=== PATIENT | female | born 1995 | race Caucasian/White ===

== ENCOUNTER 2023-02-24 11:07 | Emergency (ER) | payer OTHER, SELFPAY ==
[2023-02-24 11:12] VITALS: BP 141/86; PULSE 87; RESP 16; TEMP 36.5; O2SAT 99; BMI 23.5
[2023-02-24 11:37] LABS: UR Morphine/Opiate cutoff 300 Negative (Negative); Ur Creatinine Normal (Normal); Ur Specific Gravity Normal (Normal); Urine Amphetamines Negative (Negative); Urine Barbiturates Negative (Negative); Urine Benzodiazepines Negative (Negative); Urine Cocaine Negative (Negative); Urine MDMA Negative (Negative); Urine Methadone Negative (Negative); Urine Methamphetamines Negative (Negative); Urine Oxycodone Negative (Negative); Urine Phencyclidine Negative (Negative); Urine Tetrahydrocannabinol Negative (Negative); Urine Tricyclic Antidepressant Negative (Negative); Urine pH Normal (Normal)
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
== END 2023-02-24 12:08 | disposition home or self-care (01) ==
PROVIDERS: Emergency Provider Emergency Medicine
DX: R42 Dizziness and giddiness (principal)
CPT/HCPCS: 80305; 93005; 93010; 99281; 99282

== ENCOUNTER 2023-10-13 12:56 | Emergency (ER) | payer OTHER, SELFPAY ==
[2023-10-13 13:17] VITALS: BP 146/75; PULSE 97; RESP 18; TEMP 37; O2SAT 99; BMI 21.9
[2023-10-13] MEDS: KETOROLAC 30 MG/ML VIAL IM (14:30)
[2023-10-13 14:31] VITALS: BP 122/72; PULSE 67; O2SAT 100
--- NOTE | 2023-10-13 17:35 | ED.BACK ---
HPI - Back Pain/Injury <Rina Randolph PA-C - Last Filed: 10/13/23 17:45> General Chief Complaint: Back Pain/Injury Stated Complaint: shooting back and leg pain/ neck stiffness Time Seen by Provider: 10/13/23 14:05 Source: patient History of Present Illness HPI Narrative: Patient is a 27-year-old female who presents accompanied by her aunt due to low back pain with right-sided sciatica and neck pain. The low back pain has been flaring since yesterday. Patient reports a long history of low back pain, thinks it was triggered initially by a left bimalleolar lower extremity fracture that caused her to have an uneven gait. She recently had an MRI (she shows me the report on her phone) through [facility] which showed degenerative disc disease in the lumbar spine. She is currently awaiting a referral for additional treatment. She has already completed two rounds of physical therapy. 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 She also complains of neck pain today, and reports that her neck pops when she rotates her head. The pain is worse the right side of her neck but she endorses intermittent numbness in her left fingers 1 through 3. She denies any acute injury or trauma to neck or her low back. She takes gabapentin 100-400 mg 1 to 2 times a day as well as Aleve and Tylenol. She currently takes Vyvanse, not on any other controlled substances. Patient denies use of IV drugs. She also complains of intermittent palpitations and lightheadedness. She is currently awaiting an appointment with her primary care to address this. Related Data Previous Rx's Medication Instructions Recorded cyclobenzaprine 5 mg tablet 5 mg PO TID PRN muscle spasm #10 10/13/23 tabs Allergies Allergy/AdvReac Type Severity Reaction Status Date / Time ibuprofen Allergy Rash Verified 02/24/23 11:17 Review of Systems <Rina Randolph PA-C - Last Filed: 10/13/23 17:45> Review of Systems ROS Unobtainable: All systems reviewed & are unremarkable except as noted in HPI and below Patient History <Rina Randolph PA-C - Last Filed: 10/13/23 17:45> Social History Smoking Status: Current every day smoker Smoking Status: Current every day smoker tobacco type: vaping alcohol intake frequency: holidays/special occasions only Substance Use Type: marijuana Exam <Rina Randolph PA-C - Last Filed: 10/13/23 17:45> Narrative Exam Narrative: GENERAL: 27 year old patient appears stated age. Well-developed patient, in no acute distress. NEURO: AOx3.5/5 strength in lower extremities. HEAD: Atraumatic. Normocephalic. EYES: Pupils equal round and reactive. Extraocular motions intact. No scleral icterus. No injection or drainage. ENT: Nose without bleeding or purulent drainage. CARDIOVASCULAR: Regular rate and rhythm without murmurs, gallops, or rubs. RESPIRATORY: Clear to auscultation. Breath sounds equal bilaterally. No wheezes, rales, or rhonchi. EXTREMITIES: No edema or joint tenderness. SPINE: Tenderness to light palpation throughout the spine, from C-spine through S-spine. No step-offs or focal point tenderness. Pain over the right SI joint area. Pain the right sternocleidomastoid. SKIN: No rash or erythema of visible areas Initial Vital Signs Initial Vital Signs: Vital Signs Temperature 98.6 F 10/13/23 13:17 Pulse Rate 97 H 10/13/23 13:17 Respiratory Rate 18 10/13/23 13:17 Blood Pressure 146/75 H 10/13/23 13:17 Pulse Oximetry 99 10/13/23 13:17 Oxygen Delivery Method Room Air 10/13/23 13:17 <Sobeida Serra DO - Last Filed: 10/16/23 08:58> Initial Vital Signs Initial Vital Signs: Vital Signs Temperature 98.6 F 10/13/23 13:17 Pulse Rate 97 H 10/13/23 13:17 Respiratory Rate 18 10/13/23 13:17 Blood Pressure 146/75 H 10/13/23 13:17 Pulse Oximetry 99 10/13/23 13:17 Oxygen Delivery Method Room Air 10/13/23 13:17 Course <Rina Randolph PA-C - Last Filed: 10/13/23 17:45> Orders Ordered: Discontinued Medications Ketorolac Tromethamine (Ketorolac 30 Mg/Ml Vial) 30 mg IM NOW ONE Stop: 10/13/23 14:26 Last Admin: 10/13/23 14:30 Dose: 30 mg Documented By: RL Vital Signs Vital signs: Vital Signs - 8 hr 10/13/23 13:17 10/13/23 14:31 Temperature 98.6 F Pulse Rate 97 H 67 Respiratory Rate 18 Blood Pressure 146/75 H 122/72 Pulse Oximetry 99 100 Oxygen Delivery Method Room Air Room Air <Sobeida Serra DO - Last Filed: 10/16/23 08:58> Orders Ordered: Discontinued Medications Ketorolac Tromethamine (Ketorolac 30 Mg/Ml Vial) 30 mg IM NOW ONE Stop: 10/13/23 14:26 Last Admin: 10/13/23 14:30 Dose: 30 mg Documented By: RL Vital Signs Vital signs: Vital Signs - 8 hr 10/13/23 13:17 10/13/23 14:31 Temperature 98.6 F Pulse Rate 97 H 67 Respiratory Rate 18 Blood Pressure 146/75 H 122/72 Pulse Oximetry 99 100 Oxygen Delivery Method Room Air Room Air MDM - Back Pain/Injury <Rina Randolph PA-C - Last Filed: 10/13/23 17:45> MDM Narrative Medical decision making narrative: Multiple etiologies for patient's symptoms considered including, but not limited to: Lumbar strain with sciatica, cauda equina, epidural abscess Patient is a 27-year-old who presents with acute on chronic low back pain, currently seeking pain relief while she waits for a referral to a pain specialist. She is accompanied by her aunt who is very vocal in addressing patient's concerns and reporting her symptoms. Patient is prescribed gabapentin but it seems her dose is limited by sleepiness. Patient recently completed MRI of her lumbar spine. There is no new injury or trauma to suggest need for repeat imaging of her neck or her lumbar spine today. There are no red flags for cauda equina, epidural abscess or hematoma. Pain treated with Toradol IM in the emergency room and prescribed muscle relaxers for symptomatic relief. Encouraged continued NSAIDs, stretching, gentle activity and ice or heat. Advised return precautions. Advised to follow up with primary care regarding concern for palpitations and lightheadedness; this has been going on for 4 months and patient does not want to stay in the emergency room today to do labs or get an EKG. She states she knows how to get follow up for this Patient's symptoms improved over duration of stay with above-stated therapies. Findings and discharge diagnosis discussed with patient/family followed by verbalization of understanding Return precautions discussed with patient/family whom verbalize understanding of diagnosis and plan Discharge Plan Departure Patient Disposition: Home Clinical Impression: Acute back pain with sciatica Qualifiers: Laterality: right Qualified Code(s): M54.41 - Lumbago with sciatica, right side Instructions: DI for Back Pain With Sciatica Activity Restrictions/Additional Instructions: *You have been diagnosed with low back pain with sciatica. You were given a dose of Toradol in the emergency room to help with your pain. Do not take anymore NSAIDs such as Aleve for at least 12 hours. There is not evidence to support Tylenol for the use of pain management and low back pain. I would continue taking the Aleve. I will also prescribe a muscle relaxer for you to use when the pain is severe. Be aware this medication can make you sleepy, cause dry mouth and constipation. Do not combine with other sedative medications or take with alcohol. Do not drive or operate heavy machinery while taking this medication. Please follow up with your primary care regarding ongoing management of your chronic low back pain. Please return to the emergency department if you experience loss of control of bowel or bladder or numbness in your groin or are unable to walk due to weakness. *What to do: *Please continue to take your regular medications as directed. [x] New medication prescriptions sent to your pharmacy: [facility] [ ] New medication written as a paper prescription [ ] No new medications given *Please follow up with your primary care provider in 2-3 days, call for an appointment. Let them know you were seen in the Emergency Department and that we ask that you be seen in follow up. We will electronically transmit a record of today's note if your PCP is in our system *If you do not have a primary care provider please contact the [facility] Resource line at [phone]. They will ask some questions about your medical history and help get you set up with a doctor in the community. *Return to Emergency Department if you should have any new, worsening or concerning symptoms, such as [fever greater than 101 F, shaking chills, worsening pain, persistent vomiting or other concerning symptoms]. Prescriptions: New cyclobenzaprine 5 mg tablet 5 mg PO TID PRN (Reason: muscle spasm) Qty: 10 0RF Referrals: Miscellaneous,Doctor, MD [Primary Care Provider] - Stand Alone Forms: Patient Portal/API ED Sign-out <Sobeida Serra DO - Last Filed: 10/16/23 08:58> Cosign ED Attending Coskatieature Attestation: I was available for consultation.
== END 2023-10-13 14:35 | disposition home or self-care (01) ==
PROVIDERS: Emergency Provider Physician Assistant
DX: M54.41 Lumbago with sciatica, right side (principal)
CPT/HCPCS: 96372; 99283; J1885

== ENCOUNTER 2024-09-11 08:18 | Emergency (ER) | payer OTHER, SELFPAY ==
[2024-09-11] VITALS (7 sets, daily range): BP systolic 107–123; BP diastolic 65–73; PULSE 55–74; RESP 18; TEMP 37.1; O2SAT 97–99; BMI 21.1
--- NOTE | 2024-09-11 08:43 | ED.GENADULT ---
HPI - General Adult General Chief complaint: Back Pain/Injury Stated complaint: Tear In right hip . Time Seen by Provider: 09/11/24 08:35 History of Present Illness HPI narrative: 28-year-old woman with a previously diagnosed right labral tear presents with significant increase in right hip pain. She has been seen by her primary care physician. Uses Alleve twice a day and oxycodone has recently been added. She uses half to 1 5 mg oxycodone daily. 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 Has not appointment with Orthopedic surgery in September comes in today because the pain is so severe she is having difficulty walking. She did take an Aleve and 5 mg of oxycodone prior to arrival. Not describing fevers or chills. Related Data Previous Rx's Medication Instructions Recorded cyclobenzaprine 5 mg tablet 5 mg PO TID PRN muscle spasm #10 10/13/23 tabs dexamethasone 4 mg tablet 10 mg (2.5 x 4 mg) PO DAILY #5 tabs 09/11/24 Allergies Allergy/AdvReac Type Severity Reaction Status Date / Time ibuprofen Allergy Rash Verified 02/24/23 11:17 Review of Systems Review of Systems Narrative: Pertinent positive and negative findings as per HPI Patient History Social History Smoking Status: Current every day smoker Smoking Status: Current every day smoker tobacco type: vaping alcohol intake frequency: holidays/special occasions only Exam Initial Vital Signs Initial Vital Signs: Vital Signs Pulse Rate 73 09/11/24 08:32 Pulse Oximetry 97 09/11/24 08:32 General: Alert appropriate , obvious pain lying with her left hip slightly elevated, knee is flexed and hip is internally rotated to find position of comfort Respiratory: Able to speak in full sentences, no obvious respiratory distress Skin: No obvious rashes, warm and dry Abdomen: Mild right lower quadrant and right flank pain Musculoskeletal: Significant tenderness along the entire right hip area including inguinal area, ischial tuberosity, external bursa area, SI joint. Any movement of the hip is painful. She is neurovascularly intact distal to the hip. There are no skin skin changes, warmth or redness associated with the Neurologic: Grossly intact no obvious asymmetries or abnormalities Psych: appropriate insight and affect, cooperative Course Orders Ordered: ED Orders 09/11/24 08:55 XR hip w pel if done RT 2V Stat 09/11/24 09:50 CRP [C-Reactive Protein Quant] Stat Complete Blood Count AUTO DIFF Stat Comprehensive Metabolic Panel Stat Erythrocyte Sedimentation Rate Stat Hydromorphone HCl (Hydromorphone 0.5 Mg Inj) 0.5 mg IV Q15MIN PRN PRN Reason: Pain, Discontinued Medications Naproxen (Naproxen 250 Mg Tablet) 500 mg PO NOW ONE Stop: 09/11/24 09:01 Last Admin: 09/11/24 09:26 Dose: 500 mg Documented By: LIBAN Vital Signs Vital signs: Vital Signs - 8 hr 09/11/24 08:32 09/11/24 08:38 09/11/24 09:00 Temperature 98.8 F Pulse Rate 73 70 Respiratory Rate 18 Blood Pressure 122/73 123/69 Pulse Oximetry 97 97 Oxygen Delivery Method Room Air 09/11/24 09:00 09/11/24 09:30 09/11/24 09:49 Temperature Pulse Rate 74 72 Respiratory Rate Blood Pressure 114/69 Pulse Oximetry 98 97 Oxygen Delivery Method 09/11/24 09:49 Temperature Pulse Rate 66 Respiratory Rate Blood Pressure Pulse Oximetry 98 Oxygen Delivery Method Medical Decision Making Lab Data 09/11/24 09:50 09/11/24 09:50 Labs: Lab Results 09/11/24 Range/Units 09:50 WBC 7.4 (4.5-11.0) X10^3/uL RBC 4.15 (4.0-5.2) X10^6/uL Hgb 13.4 (12.0-16.0) g/dL Hct 40.0 (36-46) % MCV 96.4 (80-100) fL MCH 32.2 (26-34) PG MCHC 33.4 (30-36) % RDW 13.6 (11.6-14.8) % Plt Count 192 (150-400) X10^3/uL Neut % (Auto) 69.7 (50-75) % Lymph % (Auto) 23.6 L (25-40) % Major % (Auto) 5.0 (3-14) % Eos % (Auto) 1.1 L (2-4) % Baso % (Auto) 0.6 (0-2) % Neut # (Auto) 5100 (5708-8160) /uL Lymph # (Auto) 1700 (7722-7082) /uL Major # (Auto) 400 (0-900) /uL Eos # (Auto) 100 (0-450) /uL Baso # (Auto) 0 (0-100) /uL Sodium 139 (137-145) mmol/L Potassium 4.3 (3.4-5.1) mmol/L Chloride 109 H (98-107) mmol/L Carbon Dioxide 21 L (22-32) mmol/L BUN 10 (7-17) mg/dL Creatinine 0.64 (0.52-1.04) mg/dL Estimated GFR > 60 (>60) mL/min BUN/Creatinine Ratio 15.6 (6-22) Glucose 96 (70-100) mg/dL Calcium 8.7 (8.4-10.2) mg/dL Total Bilirubin 0.4 (0.2-1.3) mg/dL AST 29 (14-36) IU/L ALT 16 (<35) IU/L Alkaline Phosphatase 45 (38-126) U/L C-Reactive Protein < 0.5 (<1.0) mg/dL Total Protein 7.1 (6.3-8.2) g/dL Albumin 4.4 (3.5-5.0) g/dL Globulin 2.7 (1.7-4.1) g/dL Albumin/Globulin Ratio 1.6 (1.0-2.8) Point of Care Testing Test Results Negative Urine Dip Bedside Urine Glucose Negative Bedside Urine Bilirubin - Negative Bedside Urine Ketone - Negative Urine Specific [employer] 1.010 Bedside Urine Occult Blood - Negative Bedside Urine pH 8.5 Bedside Urine Protein - Negative Bedside Urine Urobilinogen - Negative Bedside Urine Nitrite - Negative Bedside Urine Leukocytes - Negative Esterase Point of care testing: Point of Care Testing Test Results Negative Urine Dip Bedside Urine Glucose Negative Bedside Urine Bilirubin - Negative Bedside Urine Ketone - Negative Urine Specific [employer] 1.010 Bedside Urine Occult Blood - Negative Bedside Urine pH 8.5 Bedside Urine Protein - Negative Bedside Urine Urobilinogen - Negative Bedside Urine Nitrite - Negative Bedside Urine Leukocytes - Negative Esterase MDM Narrative Medical decision making narrative: CC: Severe right hip pain Complicating co-morbidities: Known right labral tear orthopedic consultation scheduled in September She did have her IUD removed approximately 10 days ago. Had a normal menstrual cycle after that. No loud vaginal discharge or discomfort. Data collected from: patient Social determinants of health that may influence the patients condition: Medical records reviewed: Notes from [facility] and primary are reviewed Patient was seen by pain management medication Dr. Null on August 05. Hip injection under fluoroscopic guidance for diagnostic and therapeutic purposes done back in March of 2029 resulted in 100% relief of her right groin pain that lasted for 2 days. Right hip arthrogram June 09 showed posterior labral tear of the right hip. Indication of appointment with Dr. Burleson 10/08 Differential considered: Exacerbation of chronic tear, septic joint, appendicitis, kidney stone, PID Exam documented above, pertinent findings include: Significant pain, hip is flexed and leg internally rotated. Exquisite pain with any movement Lab Test results independently reviewed as above. Pertinent findings: CBC is unremarkable, no leukocytosis Chemistries are reassuring CRP is not elevated Sed rateIs not elevated Imaging studies independently reviewed: MRI of the hip was done July 17 showing posterior labral tear of the right hip without SI joint involvement, incidental notation of multi level disc desiccation in the lumbar spine. No fractures and maintained joint space of the hips bilaterally X-ray of the hip does not show any new bony abnormalities Treatments: Oral Naprosyn, she takes this successfully at home does have allergy that she describes as a Oliver Todd's like severe skin reaction at the age of 13. Discussion: 28-year-old woman with known right hip labral tear with significant increased right hip pain difficulty walking today. Workup does not suggest alternative diagnosis for her pain such as appendicitis, pyelonephritis, kidney stone constipation. No leukocytosis or significantly elevated inflammatory markers to suggest septic joint. She is given a dose of dexamethasone and 2 additional days for 3 day course of anti inflammation treatment. We will recommend that she is more consistent with Alleve 2 pills in the morning 2 pills at night. She is appropriately using very small doses of oxycodone as prescribed by his primary care physician. Talked about icing to help with inflammation. Message was sent to her primary care physician and patient will try to contact the orthopedic office to see if follow up orthopedic appointment might be arranged more urgently. At this point there was no indication for hospitalization, further imaging or additional lab work. She is safe for discharge Discharge Plan Departure Patient Disposition: Home Clinical Impression: Acute pain of right hip Acetabular labrum tear Qualifiers: Encounter type: initial encounter Laterality: right Qualified Code(s): S73.191A - Other sprain of right hip, initial encounter Activity Restrictions/Additional Instructions: Thank you for coming in today I am sorry that you are suffering so much with this hip labrum tear, I do believe that the pain today is from that. I did not see any evidence of infection in the joint, infection in the remainder of your abdomen, I do not suspect appendicitis, pyelonephritis, kidney stone abnormalities that might be exacerbating your pain. I am going to suggest 3 days of dexamethasone, powerful anti-inflammatory, to help reduce some of the inflammatory pain. This is not a fix but hopefully it will help small amount. Please do continue baseline anti-inflammatory treatment with Alleve 2 in the morning, 2 in the evening consistently. It sounds like you are are appropriately using very small doses oxycodone You can certainly call the orthopedic office and see if you are appointment might be moved up. I did message your primary care doctor today. If you find that you are getting worse or develop any new symptoms, please feel free to return to the emergency department for further evaluation. Prescriptions: New dexamethasone 4 mg tablet 10 mg PO DAILY Qty: 5 0RF No Action cyclobenzaprine 5 mg tablet 5 mg PO TID PRN (Reason: muscle spasm) Qty: 10 0RF Stand Alone Forms: Patient Portal/API/Survey
--- NOTE | 2024-09-11 08:55 | DI.RAD.S_ITS ---
PROCEDURE: XR HIP W PEL IF DONE RT 2V INDICATIONS: pain TECHNIQUE: 2 views of the hip were acquired. COMPARISON: [facility], MR, MR HIP RIGHT ARTHROGRAM, 07/17/2024, 11:06. FINDINGS: Bones: No displaced fracture or dislocation. No high-grade degenerative changes. Soft tissues: No suspicious calcifications. IMPRESSION: No acute osseous abnormality. Soft tissue findings better assessed on recent MRI. Dictated by: Sal Shultz M.D. on 09/11/2024 at 9:40 Approved by: Sal Shultz M.D. on 09/11/2024 at 9:41
[2024-09-11] MEDS: NAPROXEN 250 MG TABLET 500 MG PO (09:26)
[2024-09-11 10:08] LABS: Add Manual Diff / Slide Review NO; Basophils Absolute Auto 0 /uL (0-100); Basophils Percent Auto 0.6 % (0-2); Eosinophils Absolute Auto 100 /uL (0-450); Eosinophils Percent Auto 1.1 % (2-4); Hemoglobin 13.4 g/dL (12.0-16.0); Lymphocytes Absolute Auto 1700 /uL (1100-4500); Lymphocytes Percent Auto 23.6 % (25-40); Mean Corpuscular HGB Conc 33.4 % (30-36); Mean Corpuscular Hemoglobin 32.2 PG (26-34); Mean Corpuscular Volume 96.4 fL (80-100); Monocytes Absolute Auto 400 /uL (0-900); Neutrophils Absolute Auto 5100 /uL (1500-7000); Neutrophils Percent Auto 69.7 % (50-75); Platelet Count 192 X10^3/uL (150-400); Red Blood Cell Count 4.15 X10^6/uL (4.0-5.2); Red Cell Distribution Width 13.6 % (11.6-14.8); White Blood Cell Count 7.4 X10^3/uL (4.5-11.0)
[2024-09-11 10:09] LABS: Alanine Aminotransferase 16 IU/L (<35); Albumin 4.4 g/dL (3.5-5.0); Albumin Globulin Ratio 1.6 (1.0-2.8); Alkaline Phosphatase 45 U/L (38-126); Aspartate Aminotransferase 29 IU/L (14-36); BUN Creatinine Ratio 15.6 (6-22); Bilirubin Total 0.4 mg/dL (0.2-1.3); Blood Urea Nitrogen 10 mg/dL (7-17); C-Reactive Protein Quant < 0.5 mg/dL (<1.0); Calcium 8.7 mg/dL (8.4-10.2); Carbon Dioxide 21 mmol/L (22-32); Chloride 109 mmol/L (98-107); Estimated Glomerular Filt Rate > 60 mL/min (>60); Globulin 2.7 g/dL (1.7-4.1); Glucose 96 mg/dL (70-100); HEMOLYSIS 17 (0-50); Potassium 4.3 mmol/L (3.4-5.1); Sodium 139 mmol/L (137-145); Total Protein 7.1 g/dL (6.3-8.2)
[2024-09-11] MEDS: HYDROMORPHONE 0.5 MG INJ IV (10:36)
[2024-09-11] MEDS: DEXAMETHASONE 10 MG/ML VIAL IV (10:37)
[2024-09-11 10:42] LABS: Erythrocyte Sedimentation Rate 2 MM/HR (0-20)
== END 2024-09-11 11:06 | disposition home or self-care (01) ==
PROVIDERS: Emergency Provider Emergency Medicine
DX: M25.551 Pain in right hip (principal); S73.191A Other sprain of right hip, initial encounter
CPT/HCPCS: 36415; 73502; 80053; 81003; 81025; 85025; 85651; 86140; 96374; 96375; 99284; J1100; J1171